=== PATIENT | female | born 1970 | race Caucasian/White ===

== ENCOUNTER → 2021-09-26 13:13 | Outpatient (BNVA) | payer MEDICAID, SELFPAY | PROVIDERS: PCP Psychiatry & Neurology Neurology; Visit Provider Psychiatry & Neurology Neurology ==

== ENCOUNTER → 2021-09-27 15:02 | Outpatient (BNVA) | payer MEDICAID, SELFPAY | PROVIDERS: PCP Psychiatry & Neurology Neurology; Visit Provider Psychiatry & Neurology Neurology | DX: G43.109 Migraine with aura, not intractable, without status migrainosus (principal); E78.5 Hyperlipidemia, unspecified; D72.0 Genetic anomalies of leukocytes; Z88.6 Allergy status to analgesic agent; Z88.1 Allergy status to other antibiotic agents; Z88.2 Allergy status to sulfonamides | CPT/HCPCS: 64615; 99211; J0585 ==

== ENCOUNTER → 2022-01-02 08:25 | Outpatient (BNVA) | payer MEDICAID, SELFPAY | PROVIDERS: PCP Psychiatry & Neurology Neurology; Visit Provider Psychiatry & Neurology Neurology | DX: G43.109 Migraine with aura, not intractable, without status migrainosus (principal) | CPT/HCPCS: 64615; 99211; J0585 ==

== ENCOUNTER → 2022-04-12 10:28 | Outpatient (BNVA) | payer MEDICAID, SELFPAY | PROVIDERS: PCP Psychiatry & Neurology Neurology; Visit Provider Psychiatry & Neurology Neurology | DX: G43.109 Migraine with aura, not intractable, without status migrainosus (principal) | CPT/HCPCS: 64615; 99211; J0585 ==

== ENCOUNTER → 2022-07-17 10:57 | Outpatient (BNVA) | payer MEDICAID, SELFPAY | PROVIDERS: PCP Family Medicine; Visit Provider Psychiatry & Neurology Neurology | DX: G43.109 Migraine with aura, not intractable, without status migrainosus (principal); G43.119 Migraine with aura, intractable, without status migrainosus; G47.10 Hypersomnia, unspecified; R06.83 Snoring | CPT/HCPCS: 64615; 99211; J0585 ==

== ENCOUNTER → 2022-10-22 12:56 | Outpatient (BNVA) | payer MEDICAID, SELFPAY | PROVIDERS: PCP Family Medicine; Visit Provider Psychiatry & Neurology Neurology | DX: G43.109 Migraine with aura, not intractable, without status migrainosus (principal); G43.119 Migraine with aura, intractable, without status migrainosus | CPT/HCPCS: 64615; 99211; J0585 ==

== ENCOUNTER → 2023-01-22 08:22 | Outpatient (BNVA) | payer MEDICAID, SELFPAY | PROVIDERS: PCP Family Medicine; Visit Provider Psychiatry & Neurology Neurology | DX: G43.709 Chronic migraine without aura, not intractable, without status migrainosus (principal); G43.119 Migraine with aura, intractable, without status migrainosus | CPT/HCPCS: 64615; 99211; J0585 ==

== ENCOUNTER 2023-05-02 07:33 | Outpatient (AMB) | payer OTHER, SELFPAY ==
[2023-05-02 07:44] VITALS: BP 122/92; PULSE 80; O2SAT 97
--- NOTE | 2023-05-02 07:44 | A.OFFVIS_ITS ---
Intake Vital Signs 05/02/23 07:44 Weight 183 lb BP 122/92 H Blood Pressure Location Rt brachial Position Sitting Pulse 80 Pulse Source Pulse Oximeter Pulse Oximetry (%) 97 Oxygen Delivery Method Room Air Intake Visit Reasons: Botox (pharm)-CONFIRMED Intake Note: Botox Injection Convict Guard Required: No Allergies Sulfa (Sulfonamide Antibiotics) Allergy (Mild, Verified 05/02/23 07:45) unknown topiramate [From Topamax] Allergy (Mild, Verified 05/02/23 07:45) unknown vancomycin Allergy (Mild, Verified 05/02/23 07:45) unknown Medication List - Last Reconciled 05/02/23 by Jolene Acosta MD cyclobenzaprine 10 mg PO TID PRN diazepam 10 mg PO ONCE PRN gabapentin 1,500 mg PO BEDTIME ivermectin 1% appl topical mupirocin 2% topical TID PRN onabotulinumtoxinA (Botox) 200 units subcut ONCE 12 weeks ondansetron 8 mg PO Q8H PRN podofilox 0.5% mL topical rizatriptan 0 mg PO tramadol 100 mg PO Q6H PRN HPI HPI Comments History of Present Illness Details ? 52y/o female comes for treatment of migraines with botox.she reports increasing sleep issues with snoring, hypersomnia, frequent arousals. ??? Most frequent reported adverse reactions following injection of botox for chronic migraine include neck pain (9%), headache(5%), eyelid ptosis(4%), migraine(4%), muscular weakness(4%), musculuskeletal stiffness(4%), bronchitis(3%), injection site pain (3%), musculoskeletal pain(3%), myalgia(3%), facial paresis(2%), HTN(2%) and muscle spasms(2%) were discussed in detail. ??? Botulinum toxin typeA 200units Lot no [id number] expiration Aug 2025 was diluted with 4 cc of normal saline . ??? Muscles injected- ??? Frontalis 4 sites ??? Procerus 1 site ??? Regional Owner Operator Truck Driver- 2 sites ??? Temporalis- 8 sites ??? Occipitalis- 6 sites ??? Cervical paraspinals- 4 sites ??? Trapezius- 6 sites- 10 units each ??? 5 units each in 31 site ??? Total use- 185units ??? Discarded-15units [facility] Medical History Chronic migraine without aura Hypersomnia Snoring DVT (deep venous thrombosis) May-Thurner syndrome Celiac disease Hyperlipidemia GERD (gastroesophageal reflux disease) Chronic migraine with aura Surgical History History of cholecystectomy Family History Mother Cancer Heart disease Social History Alcohol intake: never Patient Tobacco Use Status: Never used Tobacco Substance Use Type: Marijuana Physical Exam Vital Signs: Last Vital Signs Pulse 80 05/02/23 07:44 BP 122/92 H 05/02/23 07:44 Pulse Ox 97 05/02/23 07:44 Oxygen Delivery Method Room Air 05/02/23 07:44 Const Orientation/consciousness: patient oriented x3 Neuro General: patient oriented x3, gait normal, tone normal, moves all extremities, no focal motor deficits and CN's II-XI intact bilaterally Office Procedures Botulinum toxin Injection 63823 - Migraine Procedure code (CPT) selection complete Office Meds onabotulinumtoxinA 200 unit solution for injection Performing Provider: Jolene Acosta MD Performing Location: [facility] [place] [facility] Administered by: Jolene Acosta MD on 05/02/23 08:12 Dose Route Admin Location Dispensed Lot Number Expiration Date [facility] Air Duct Mechanic 185 unit subcut 200 units [id number] 08/29/25 5530-3814-23 ALLERGAN/BOTOX Comments: see HPI Assessment & Plan Assessment & Plan (1) Migraine with aura, intractable, without status migrainosus: Code(s): G43.119 - Migraine with aura, intractable, without status migrainosus (2) Chronic migraine without aura: Code(s): G43.709 - Chronic migraine without aura, not intractable, without status migrainosus Plan Patient tolerated the procedure well. She will call with any side effects. Orders: Orders AMB Botulinum toxin Injection - Patient Supplied Today G43.709 - Chronic migraine without aura, not intractable, without status migrainosus Coding Level of Care Code Est Pt Level 1 (50957) Diagnoses Migraine with aura, intractable, without status migrainosus G43.119 Chronic migraine without aura G43.709 CPT Codes Botox Injection - Botox 3: 49259 - Migraine ([id number])
== END 2023-05-02 08:07 | disposition home or self-care (01) ==
PROVIDERS: PCP Family Medicine; Visit Provider Psychiatry & Neurology Neurology
DX: G43.119 Migraine with aura, intractable, without status migrainosus (principal); G43.709 Chronic migraine without aura, not intractable, without status migrainosus
CPT/HCPCS: 64615

== ENCOUNTER → 2023-05-02 07:33 | Outpatient (BNVA) | payer MEDICAID, SELFPAY | PROVIDERS: PCP Family Medicine; Visit Provider Psychiatry & Neurology Neurology | DX: G43.709 Chronic migraine without aura, not intractable, without status migrainosus (principal); G43.119 Migraine with aura, intractable, without status migrainosus | CPT/HCPCS: 64615; 99211; J0585 ==

== ENCOUNTER 2023-08-06 09:12 | Outpatient (AMB) | payer OTHER, SELFPAY ==
--- NOTE | 2023-08-06 09:15 | A.OFFVIS_ITS ---
Intake Vital Signs 08/06/23 09:17 Height 5 ft 3 in BP 138/104 H Blood Pressure Location Rt brachial Position Sitting Intake Visit Reasons: BOTOX - LVM Intake Note: Patient presents for botox . Allergies Sulfa (Sulfonamide Antibiotics) Allergy (Mild, Verified 08/06/23 09:16) unknown topiramate [From Topamax] Allergy (Mild, Verified 08/06/23 09:16) unknown vancomycin Allergy (Mild, Verified 08/06/23 09:16) unknown Medication List - Last Reconciled 08/06/23 by Jolene Acosta MD cyclobenzaprine 10 mg PO TID PRN diazepam 10 mg PO ONCE PRN gabapentin 1,500 mg PO BEDTIME ivermectin 1% appl topical mupirocin 2% topical TID PRN onabotulinumtoxinA (Botox) 200 units subcut ONCE 12 weeks ondansetron 8 mg PO Q8H PRN podofilox 0.5% mL topical rizatriptan 0 mg PO tramadol 100 mg PO Q6H PRN HPI HPI Comments History of Present Illness Details ? 53y/o female comes for treatment of migraines with botox.she reports increasing sleep issues with snoring, hypersomnia, frequent arousals. How many migraine days prior to botox 25-30 How long do the migraines last 1-2 days Intensity of migraine 03/07 ER visits related to migraine -2 Effectiveness of botox from last two treatment(s) How many migraine days since receiving treatment: 2-3 Change? in intensity of migraine? decreased Change in frequency of migraine?decreased Change in use of acute medication for migraine?decreased Change in quality of life?improved ER visits related to migraine?none Have at least three months elapsed since last treatment (Last botox date - frequency of injections) 05/02/23 ??? Most frequent reported adverse reactions following injection of botox for chronic migraine include neck pain (9%), headache(5%), eyelid ptosis(4%), migraine(4%), muscular weakness(4%), musculuskeletal stiffness(4%), bronchitis(3%), injection site pain (3%), musculoskeletal pain(3%), myalgia(3%), facial paresis(2%), HTN(2%) and muscle spasms(2%) were discussed in detail. ??? Botulinum toxin typeA 200units Lot no [id number] expiration November 2025 was diluted with 4 cc of normal saline . ??? Muscles injected- ??? Frontalis 4 sites ??? Procerus 1 site ??? Stamp Pad Finisher- 2 sites ??? Temporalis- 8 sites ??? Occipitalis- 6 sites ??? Cervical paraspinals- 4 sites ??? Trapezius- 6 sites- 10 units each ??? 5 units each in 31 site ??? Total use- 185units ??? Discarded-15units [facility] Medical History Chronic migraine without aura Hypersomnia Snoring DVT (deep venous thrombosis) May-Thurner syndrome Celiac disease Hyperlipidemia GERD (gastroesophageal reflux disease) Chronic migraine with aura Surgical History History of cholecystectomy Family History Mother Cancer Heart disease Social History Alcohol intake: never Patient Tobacco Use Status: Never used Tobacco Substance Use Type: Marijuana Physical Exam Vital Signs: Last Vital Signs BP 138/104 H 08/06/23 09:17 Const Orientation/consciousness: patient oriented x3 Neuro General: patient oriented x3, gait normal, tone normal, moves all extremities, no focal motor deficits and CN's II-XI intact bilaterally Office Procedures Botulinum toxin Injection 46299 - Migraine Procedure code (CPT) selection complete Office Meds onabotulinumtoxinA 200 unit solution for injection Performing Provider: Jolene Acosta MD Performing Location: [facility] [place] [facility] Administered by: Jolene Acosta MD on 08/06/23 09:49 Dose Route Admin Location Dispensed Lot Number Expiration Date [facility] Liturgical Music Director 185 unit IM 200 units [id number] 11/26/25 6653-3493-04 ALLERGAN/BOTOX Comments: see HPI Assessment & Plan Assessment & Plan (1) Migraine with aura, intractable, without status migrainosus: Code(s): G43.119 - Migraine with aura, intractable, without status migrainosus (2) Chronic migraine without aura: Code(s): G43.709 - Chronic migraine without aura, not intractable, without status migr ainosus Plan Patient tolerated the procedure well. She will call with any side effects. Orders: Orders AMB Botulinum toxin Injection Today G43.709 - Chronic migraine without aura, not intractable, without status migrainosus Coding Level of Care Code Est Pt Level 1 (62343) Diagnoses Migraine with aura, intractable, without status migrainosus G43.119 Chronic migraine without aura G43.709 CPT Codes Botox Injection - Botox 3: 00392 - Migraine ([id number])
[2023-08-06 09:17] VITALS: BP 138/104
== END 2023-08-06 09:40 | disposition home or self-care (01) ==
PROVIDERS: PCP Family Medicine; Visit Provider Psychiatry & Neurology Neurology
DX: G43.119 Migraine with aura, intractable, without status migrainosus (principal); G43.709 Chronic migraine without aura, not intractable, without status migrainosus
CPT/HCPCS: 64615

== ENCOUNTER → 2023-08-06 09:12 | Outpatient (BNVA) | payer OTHER, SELFPAY | PROVIDERS: PCP Family Medicine; Visit Provider Psychiatry & Neurology Neurology | DX: G43.709 Chronic migraine without aura, not intractable, without status migrainosus (principal); G43.119 Migraine with aura, intractable, without status migrainosus | CPT/HCPCS: 64615; 99211; J0585 ==

== ENCOUNTER 2023-11-05 07:33 | Outpatient (AMB) | payer MEDICAID, SELFPAY ==
[2023-11-05 07:37] VITALS: BP 126/74; PULSE 76; RESP 16; O2SAT 98; BMI 32.8
--- NOTE | 2023-11-05 07:37 | MHC.OFFVIS ---
Intake Vital Signs 11/05/23 07:37 Height 5 ft 3 in Weight 185 lb BMI 32.8 BP 126/74 Blood Pressure Location Rt brachial Position Sitting Respiration 16 Pulse 76 Pulse Source Pulse Oximeter Pulse Oximetry (%) 98 Oxygen Delivery Method Room Air Intake Visit Reasons: Botox appt-CONF Intake Note: Pt presents tot he office for Botox injections. Church History Teacher Required: No Allergies Sulfa (Sulfonamide Antibiotics) Allergy (Mild, Verified 11/05/23 07:37) unknown topiramate [From Topamax] Allergy (Mild, Verified 11/05/23 07:37) unknown vancomycin Allergy (Mild, Verified 11/05/23 07:37) unknown Medication List - Last Reconciled 11/05/23 by Jolene Acosta MD cyclobenzaprine 10 mg PO TID PRN diazepam 10 mg PO ONCE PRN gabapentin 1,500 mg PO BEDTIME ivermectin 1% appl topical mupirocin 2% topical TID PRN onabotulinumtoxinA (Botox) 200 units subcut ONCE 12 weeks ondansetron 8 mg PO Q8H PRN podofilox 0.5% mL topical rizatriptan 0 mg PO rizatriptan take 1 tab at onset of headache; if no relief may repeat 1 tab after at least 2 hrs; max = 3 tabs/24 hr PO tramadol 100 mg PO Q6H PRN HPI HPI Comments History of Present Illness Details ? 53y/o female comes for treatment of migraines with botox.she reports increasing sleep issues with snoring, hypersomnia, frequent arousals. How many migraine days prior to botox 25-30 How long do the migraines last 1-2 days Intensity of migraine 03/07 ER visits related to migraine -2 Effectiveness of botox from last two treatment(s) How many migraine days since receiving treatment: 2-3 Change? in intensity of migraine? decreased Change in frequency of migraine?decreased Change in use of acute medication for migraine?decreased Change in quality of life?improved ER visits related to migraine?none Have at least three months elapsed since last treatment (Last botox date - frequency of injections) 05/02/23 ??? Most frequent reported adverse reactions following injection of botox for chronic migraine include neck pain (9%), headache(5%), eyelid ptosis(4%), migraine(4%), muscular weakness(4%), musculuskeletal stiffness(4%), bronchitis(3%), injection site pain (3%), musculoskeletal pain(3%), myalgia(3%), facial paresis(2%), HTN(2%) and muscle spasms(2%) were discussed in detail. ??? Botulinum toxin typeA 200units Lot no [id number] expiration December 2025 was diluted with 4 cc of normal saline . ??? Muscles injected- ??? Frontalis 4 sites ??? Procerus 1 site ??? Professional Nurse- 2 sites ??? Temporalis- 8 sites ??? Occipitalis- 6 sites ??? Cervical paraspinals- 4 sites ??? Trapezius- 6 sites- 10 units each ??? 5 units each in 31 site ??? Total use- 185units ??? Discarded-15units [facility] Medical History Chronic migraine without aura Hypersomnia Snoring DVT (deep venous thrombosis) May-Thurner syndrome Celiac disease Hyperlipidemia GERD (gastroesophageal reflux disease) Chronic migraine with aura Surgical History History of cholecystectomy Family History Mother Cancer Heart disease Social History Alcohol intake: never Patient Tobacco Use Status: Never used Tobacco Substance Use Type: Marijuana Physical Exam Vital Signs: Last Vital Signs Pulse 76 11/05/23 07:37 Resp 16 11/05/23 07:37 BP 126/74 11/05/23 07:37 Pulse Ox 98 11/05/23 07:37 Oxygen Delivery Method Room Air 11/05/23 07:37 BMI result Body Mass Index 32.8 Const Orientation/consciousness: patient oriented x3 Neuro General: patient oriented x3, gait normal, tone normal, moves all extremities, no focal motor deficits and CN's II-XI intact bilaterally Office Procedures Botulinum toxin Injection 55989 - Migraine Procedure code (CPT) selection complete Office Meds onabotulinumtoxinA 200 unit solution for injection Performing Provider: Jolene Acosta MD Performing Location: [facility] Administered by: Jolene Acosta MD on 11/05/23 08:40 Dose Route Admin Location Dispensed Lot Number Expiration Date [facility] Otorhinolaryngologist 185 unit IM 200 units [id number] 12/27/25 0549-9789-38 ALLERGAN/BOTOX Comments: see HPI Assessment & Plan Assessment & Plan (1) Migraine with aura, intractable, without status migrainosus: Code(s): G43.119 - Migraine with aura, intractable, without status migrainosus (2) Chronic migraine without aura: Code(s): G43.709 - Chronic migraine without aura, not intractable, without status migrainosus Plan Patient tolerated the procedure well. She will call with any side effects. Orders: Orders AMB Botulinum toxin Injection Today G43.709 - Chronic migraine without aura, not intractable, without status migrainosus Medications: New rizatriptan take 1 tab at onset of headache; if no relief may repeat 1 tab after at least 2 hrs; max = 3 tabs/24 hr PO 14 tabs 6RF rizatriptan take 1 tab at onset of headache; if no relief may repeat 1 tab after at least 2 hrs; max = 3 tabs/24 hr PO 14 tabs 6RF onabotulinumtoxinA 200 units IM ONCE 1 ea 0RF migraine G43.709 - Chronic migraine without aura, not intractable, without status migrainosus Coding Level of Care Code Est Pt Level 1 (63369) Diagnoses Migraine with aura, intractable, without status migrainosus G43.119 Chronic migraine without aura G43.709 CPT Codes Botox Injection - Botox 3: 44994 - Migraine ([id number])
== END 2023-11-05 08:32 | disposition home or self-care (01) ==
PROVIDERS: PCP Family Medicine; Referring Provider Family Medicine; Visit Provider Psychiatry & Neurology Neurology
DX: G43.119 Migraine with aura, intractable, without status migrainosus (principal)
CPT/HCPCS: 64615

== ENCOUNTER → 2023-11-05 07:33 | Outpatient (BNVA) | payer MEDICAID, SELFPAY | PROVIDERS: PCP Family Medicine; Visit Provider Psychiatry & Neurology Neurology | DX: G43.119 Migraine with aura, intractable, without status migrainosus (principal); G43.709 Chronic migraine without aura, not intractable, without status migrainosus | CPT/HCPCS: 64615; 99211; J0585 ==

== ENCOUNTER 2024-02-27 12:38 | Outpatient (AMB) | payer OTHER, SELFPAY ==
--- NOTE | 2024-02-27 12:40 | MHC.OFFVIS ---
Vital Signs 02/27/24 12:41 Height 5 ft 3 in Weight 185 lb BMI 32.8 BP 106/62 Blood Pressure Location Rt brachial Position Sitting Respiration 16 Pulse 93 Pulse Source Pulse Oximeter Pulse Oximetry (%) 97 Oxygen Delivery Method Room Air Intake Visit Reasons: BOTOX - LVM w/add Intake Note: Pt presents to the office for Botox injections for chronic migraines. Supervisor Blood Donor Recruiters Required: No Allergies Sulfa (Sulfonamide Antibiotics) Allergy (Mild, Verified 02/27/24 12:40) unknown topiramate [From Topamax] Allergy (Mild, Verified 02/27/24 12:40) unknown vancomycin Allergy (Mild, Verified 02/27/24 12:40) unknown Medication List - Last Reconciled 02/27/24 by Jolene Acosta MD cyclobenzaprine 10 mg PO TID PRN diazepam 10 mg PO ONCE PRN gabapentin 1,500 mg PO BEDTIME ivermectin 1% appl topical mupirocin 2% topical TID PRN onabotulinumtoxinA (Botox) 200 units subcut ONCE 12 weeks ondansetron 8 mg PO Q8H PRN podofilox 0.5% mL topical rizatriptan 0 mg PO rizatriptan take 1 tab at onset of headache; if no relief may repeat 1 tab after at least 2 hrs; max = 3 tabs/24 hr PO tramadol 100 mg PO Q6H PRN HPI Comments Details: ? 53y/o female comes for treatment of migraines with botox.she reports increasing sleep issues with snoring, hypersomnia, frequent arousals. How many migraine days prior to botox 25-30 How long do the migraines last 1-2 days Intensity of migraine 03/07 ER visits related to migraine -2 Effectiveness of botox from last two treatment(s) How many migraine days since receiving treatment: 2-3 Change? in intensity of migraine? decreased Change in frequency of migraine?decreased Change in use of acute medication for migraine?decreased Change in quality of life?improved ER visits related to migraine?none Have at least three months elapsed since last treatment (Last botox date - frequency of injections) 11/19 ??? Most frequent reported adverse reactions following injection of botox for chronic migraine include neck pain (9%), headache(5%), eyelid ptosis(4%), migraine(4%), muscular weakness(4%), musculuskeletal stiffness(4%), bronchitis(3%), injection site pain (3%), musculoskeletal pain(3%), myalgia(3%), facial paresis(2%), HTN(2%) and muscle spasms(2%) were discussed in detail. ??? Botulinum toxin typeA 200units Lot no [id number] expiration Jun 2026 was diluted with 4 cc of normal saline . ??? Muscles injected- ??? Frontalis 4 sites ??? Procerus 1 site ??? Rn Concurrent Review- 2 sites ??? Temporalis- 8 sites ??? Occipitalis- 6 sites ??? Cervical paraspinals- 4 sites ??? Trapezius- 6 sites- 10 units each ??? 5 units each in 31 site ??? Total use- 185units ??? Discarded-15units [facility] Medical History (Updated 02/27/24 @ 13:05 by Jolene Acosta MD) Chronic migraine without aura, intractable, without status migrainosus Chronic migraine without aura Hypersomnia Snoring DVT (deep venous thrombosis) May-Thurner syndrome Celiac disease Hyperlipidemia GERD (gastroesophageal reflux disease) Chronic migraine with aura Surgical History History of cholecystectomy Family History Mother Cancer Heart disease Social History Alcohol intake: never Patient Tobacco Use Status: Never used Tobacco Substance Use Type: Marijuana Physical Exam Vital Signs: Last Vital Signs Pulse 93 02/27/24 12:41 Resp 16 02/27/24 12:41 BP 106/62 02/27/24 12:41 Pulse Ox 97 02/27/24 12:41 Oxygen Delivery Method Room Air 02/27/24 12:41 BMI result Body Mass Index 32.8 Const Orientation/consciousness: patient oriented x3 Neuro General: patient oriented x3, gait normal, tone normal, moves all extremities, no focal motor deficits and CN's II-XI intact bilaterally Assessment & Plan Assessment & Plan (1) Migraine with aura, intractable, without status migrainosus: Code(s): G43.119 - Migraine with aura, intractable, without status migrainosus Category: Medical (2) Chronic migraine without aura: Code(s): G43.709 - Chronic migraine without aura, not intractable, without status migrainosus Category: Medical (3) Chronic migraine without aura, intractable, without status migrainosus: Code(s): G43.719 - Chronic migraine without aura, intractable, without status migrainosus Category: Medical Plan Patient tolerated the procedure well. She will call with any side effects. Orders: Orders AMB Botulinum toxin Injection Today G43.719 - Chronic migraine without aura, intractable, without status migrainosus Medications: New onabotulinumtoxinA 200 units subcut ONCE 1 ea 0RF migraine G43.719 - Chronic migraine without aura, intractable, without status migrainosus Coding Level of Care Code Est Pt Level 1 (22777) Diagnoses Migraine with aura, intractable, without status migrainosus G43.119 Chronic migraine without aura G43.709 Chronic migraine without aura, intractable, without status migrainosus G43.719
[2024-02-27 12:41] VITALS: BP 106/62; PULSE 93; RESP 16; O2SAT 97; BMI 32.8
== END 2024-02-27 13:08 | disposition home or self-care (01) ==
PROVIDERS: PCP Family Medicine; Visit Provider Psychiatry & Neurology Neurology
DX: G43.E19 Chronic migraine with aura, intractable, without status migrainosus (principal)
CPT/HCPCS: 64615

== ENCOUNTER → 2024-02-27 12:38 | Outpatient (BNVA) | payer OTHER, SELFPAY | PROVIDERS: PCP Family Medicine; Visit Provider Psychiatry & Neurology Neurology | DX: G43.E19 Chronic migraine with aura, intractable, without status migrainosus (principal) | CPT/HCPCS: 64615; 99211; J0585 ==

== ENCOUNTER 2024-06-04 09:34 | Outpatient (AMB) | payer OTHER, SELFPAY ==
--- NOTE | 2024-06-04 07:33 | A.OFFVIS_ITS ---
Vital Signs 06/04/24 09:36 Height 5 ft 3 in Intake Visit Reasons: BOTOX Intake Note: Patient presents for botox Allergies Sulfa (Sulfonamide Antibiotics) Allergy (Mild, Verified 06/04/24 09:38) unknown topiramate [From Topamax] Allergy (Mild, Verified 06/04/24 09:38) unknown vancomycin Allergy (Mild, Verified 06/04/24 09:38) unknown Medication List - Last Reconciled 06/04/24 by Jolene Acosta MD cyclobenzaprine 10 mg PO TID PRN diazepam 10 mg PO ONCE PRN gabapentin 1,500 mg PO BEDTIME ivermectin 1% appl topical mupirocin 2% topical TID PRN onabotulinumtoxinA (Botox) 200 units subcut ONCE 12 weeks ondansetron 8 mg PO Q8H PRN podofilox 0.5% mL topical rizatriptan 0 mg PO rizatriptan take 1 tab at onset of headache; if no relief may repeat 1 tab after at least 2 hrs; max = 3 tabs/24 hr PO tramadol 100 mg PO Q6H PRN HPI Comments Details: ? 53y/o female comes for treatment of migraines with botox.she reports increasing sleep issues with snoring, hypersomnia, frequent arousals. How many migraine days prior to botox 25-30 How long do the migraines last 1-2 days Intensity of migraine /10 ER visits related to migraine -2 Effectiveness of botox from last two treatment(s) How many migraine days since receiving treatment: 2-3 Change? in intensity of migraine? decreased Change in frequency of migraine?decreased Change in use of acute medication for migraine?decreased Change in quality of life?improved ER visits related to migraine?none Have at least three months elapsed since last treatment (Last botox date - frequency of injections) 02/18 ??? Most frequent reported adverse reactions following injection of botox for chronic migraine include neck pain (9%), headache(5%), eyelid ptosis(4%), migraine(4%), muscular weakness(4%), musculuskeletal stiffness(4%), bronchitis(3%), injection site pain (3%), musculoskeletal pain(3%), myalgia(3%), facial paresis(2%), HTN(2%) and muscle spasms(2%) were discussed in detail. ??? Botulinum toxin typeA 200units Lot no [id number] expiration Aug 2026 was diluted with 4 cc of normal saline . ??? Muscles injected- ??? Frontalis 4 sites ??? Procerus 1 site ??? Assistant Professor Of Music- 2 sites ??? Temporalis- 8 sites ??? Occipitalis- 6 sites ??? Cervical paraspinals- 4 sites ??? Trapezius- 6 sites- 10 units each ??? 5 units each in 31 site ??? Total use- 185units ??? Discarded-15units [facility] Medical History Chronic migraine without aura, intractable, without status migrainosus Chronic migraine without aura Hypersomnia Snoring DVT (deep venous thrombosis) May-Thurner syndrome Celiac disease Hyperlipidemia GERD (gastroesophageal reflux disease) Chronic migraine with aura Surgical History History of cholecystectomy Family History Mother Cancer Heart disease Social History Alcohol intake: never Patient Tobacco Use Status: Never used Tobacco Substance Use Type: Marijuana Physical Exam Const Orientation/consciousness: patient oriented x3 Neuro General: patient oriented x3, gait normal, tone normal, moves all extremities, no focal motor deficits and CN's II-XI intact bilaterally Office Procedures Botulinum toxin Injection 09673 - Migraine Procedure code (CPT) selection complete Office Meds onabotulinumtoxinA 200 unit solution for injection Performing Provider: Jolene Acosta MD [place] [facility] [place] [facility] Administered by: Jolene Acosta MD on 06/04/24 10:58 Dose Route Admin Location Dispensed Lot Number Expiration Date [facility] Wardrobe Mistress 185 unit subcut 200 units [id number] 08/29/26 7921-1959-02 ALLERGAN/BOTOX Comments: see hpi Assessment & Plan Assessment & Plan (1) Migraine with aura, intractable, without status migrainosus: Code(s): G43.119 - Migraine with aura, intractable, without status migrainosus Category: Medical (2) Chronic migraine without aura: Code(s): G43.709 - Chronic migraine without aura, not intractable, without status migrainosus Category: Medical (3) Chronic migraine without aura, intractable, without status migrainosus: Code(s): G43.719 - Chronic migraine without aura, intractable, without status migrainosus Category: Medical Plan Patient tolerated the procedure well. She will call with any side effects. Orders: Orders AMB Botulinum toxin Injection Today G43.719 - Chronic migraine without aura, intractable, without status migrainosus Medications: New onabotulinumtoxinA 200 units subcut ONCE 1 ea 0RF migraine G43.719 - Chronic migraine without aura, intractable, without status migrainosus Coding Level of Care Code Est Pt Level 1 (32608) Diagnoses Migraine with aura, intractable, without status migrainosus G43.119 Chronic migraine without aura G43.709 Chronic migraine without aura, intractable, without status migrainosus G43.719 CPT Codes Botox Injection - Botox 3: 94908 - Migraine ([id number])
== END 2024-06-04 10:01 | disposition home or self-care (01) ==
LOC: HO.HSMS 09:35
PROVIDERS: PCP Family Medicine; Visit Provider Psychiatry & Neurology Neurology
DX: G43.719 Chronic migraine without aura, intractable, without status migrainosus (principal)
CPT/HCPCS: 64615

== ENCOUNTER → 2024-06-04 09:34 | Outpatient (BNVA) | payer OTHER, SELFPAY | PROVIDERS: PCP Family Medicine; Visit Provider Psychiatry & Neurology Neurology | DX: G43.E19 Chronic migraine with aura, intractable, without status migrainosus (principal) | CPT/HCPCS: 64615; 99211; J0585 ==

== ENCOUNTER 2024-09-29 14:41 | Outpatient (AMB) | payer OTHER, SELFPAY ==
--- NOTE | 2024-09-29 14:48 | A.OFFVIS_ITS ---
Vital Signs 09/29/24 14:49 Height 5 ft 3 in BP 112/82 Blood Pressure Location Rt brachial Position Sitting Pulse 82 Pulse Source Pulse Oximeter Pulse Oximetry (%) 100 Oxygen Delivery Method Room Air Intake Visit Reasons: Botox Intake Note: Patient presents for botox injection. practice supplied Allergies Sulfa (Sulfonamide Antibiotics) Allergy (Mild, Verified 09/29/24 14:49) unknown topiramate [From Topamax] Allergy (Mild, Verified 09/29/24 14:49) unknown vancomycin Allergy (Mild, Verified 09/29/24 14:49) unknown Medication List - Last Reconciled 09/29/24 by Jolene Acosta MD cyclobenzaprine 10 mg PO TID PRN diazepam 10 mg PO ONCE PRN gabapentin 1,500 mg PO BEDTIME ivermectin 1% appl topical mupirocin 2% topical TID PRN onabotulinumtoxinA (Botox) 200 units subcut ONCE 12 weeks ondansetron 8 mg PO Q8H PRN podofilox 0.5% mL topical rizatriptan 0 mg PO rizatriptan take 1 tab at onset of headache; if no relief may repeat 1 tab after at least 2 hrs; max = 3 tabs/24 hr PO tramadol 100 mg PO Q6H PRN HPI Comments Details: ? 54y/o female comes for treatment of migraines with botox.she reports increasing sleep issues with snoring, hypersomnia, frequent arousals. How many migraine days prior to botox 25-30 How long do the migraines last 1-2 days Intensity of migraine 8/10 ER visits related to migraine -2 Effectiveness of botox from last two treatment(s) How many migraine days since receiving treatment: 2-3 Change? in intensity of migraine? decreased Change in frequency of migraine?decreased Change in use of acute medication for migraine?decreased Change in quality of life?improved ER visits related to migraine?none Have at least three months elapsed since last treatment (Last botox date - frequency of injections) 3 mths ago ??? Most frequent reported adverse reactions following injection of botox for chronic migraine include neck pain (9%), headache(5%), eyelid ptosis(4%), migraine(4%), muscular weakness(4%), musculuskeletal stiffness(4%), bronchitis(3%), injection site pain (3%), musculoskeletal pain(3%), myalgia(3%), facial paresis(2%), HTN(2%) and muscle spasms(2%) were discussed in detail. ??? Botulinum toxin typeA 200units Lot no [id number] expiration October 2026 was diluted with 4 cc of normal saline . ??? Muscles injected- ??? Frontalis 4 sites ??? Procerus 1 site ??? Die Cast Supervisor- 2 sites ??? Temporalis- 8 sites ??? Occipitalis- 6 sites ??? Cervical paraspinals- 4 sites ??? Trapezius- 6 sites- 10 units each ??? 5 units each in 31 site ??? Total use- 185units ??? Discarded-15units [facility] Medical History Chronic migraine without aura, intractable, without status migrainosus Chronic migraine without aura Hypersomnia Snoring DVT (deep venous thrombosis) May-Thurner syndrome Celiac disease Hyperlipidemia GERD (gastroesophageal reflux disease) Chronic migraine with aura Surgical History History of cholecystectomy Family History Mother Cancer Heart disease Social History Alcohol intake: never Patient Tobacco Use Status: Never used Tobacco Substance Use Type: Marijuana Physical Exam Vital Signs: Last Vital Signs Pulse 82 09/29/24 14:49 BP 112/82 09/29/24 14:49 Pulse Ox 100 09/29/24 14:49 Oxygen Delivery Method Room Air 09/29/24 14:49 Const Orientation/consciousness: patient oriented x3 Neuro General: patient oriented x3, gait normal, tone normal, moves all extremities, no focal motor deficits and CN's II-XI intact bilaterally Office Procedures Botulinum toxin Injection 43900 - Migraine Procedure code (CPT) selection complete Office Meds onabotulinumtoxinA 200 unit solution for injection Performing Provider: Jolene Acosta MD Performing Location: [facility] [place] [facility] Administered by: Jolene Acosta MD on 09/29/24 15:07 Dose Route Admin Location Dispensed Lot Number Expiration Date [place] [employer] Welder 185 unit subcut 200 units [id number] ALLERGAN/BOTOX Comments: see hpi Assessment & Plan Assessment & Plan (1) Migraine with aura, intractable, without status migrainosus: Code(s): G43.119 - Migraine with aura, intractable, without status migrainosus Category: Medical (2) Chronic migraine without aura: Code(s): G43.709 - Chronic migraine without aura, not intractable, without status migrainosus Category: Medical (3) Chronic migraine without aura, intractable, without status migrainosus: Code(s): G43.719 - Chronic migraine without aura, intractable, without status migrainosus Category: Medical Plan Patient tolerated the procedure well. She will call with any side effects. Orders: Orders AMB Botulinum toxin Injection Today G43.719 - Chronic migraine without aura, intractable, without status migrainosus Medications: New onabotulinumtoxinA 200 units subcut ONCE 1 ea 0RF Migraine G43.719 - Chronic migraine without aura, intractable, without status migrainosus Coding Level of Care Code Est Pt Level 1 (14234) Diagnoses Migraine with aura, intractable, without status migrainosus G43.119 Chronic migraine without aura G43.709 Chronic migraine without aura, intractable, without status migrainosus G43.719 CPT Codes Botox Injection - Botox 3: 52319 - Migraine ([id number])
[2024-09-29 14:49] VITALS: BP 112/82; PULSE 82; O2SAT 100
== END 2024-09-29 15:20 | disposition home or self-care (01) ==
PROVIDERS: PCP Family Medicine; Visit Provider Psychiatry & Neurology Neurology
DX: G43.719 Chronic migraine without aura, intractable, without status migrainosus (principal)
CPT/HCPCS: 64615

== ENCOUNTER → 2024-09-29 14:41 | Outpatient (BNVA) | payer OTHER, SELFPAY | PROVIDERS: PCP Family Medicine; Visit Provider Psychiatry & Neurology Neurology | DX: G43.E19 Chronic migraine with aura, intractable, without status migrainosus (principal) | CPT/HCPCS: 64615; 99211; J0585 ==

== ENCOUNTER 2025-01-05 14:58 | Outpatient (AMB) | payer OTHER, SELFPAY ==
--- NOTE | 2025-01-05 15:03 | MHC.OFFVIS ---
Vital Signs 01/05/25 15:03 Height 5 ft 3 in Intake Visit Reasons: Botox Intake Note: Patient presents for botox injection. practice supplied Allergies Sulfa (Sulfonamide Antibiotics) Allergy (Mild, Verified 09/29/24 14:49) unknown topiramate [From Topamax] Allergy (Mild, Verified 09/29/24 14:49) unknown vancomycin Allergy (Mild, Verified 09/29/24 14:49) unknown Medication List - Last Reconciled 01/05/25 by Jolene Acosta MD cyclobenzaprine 10 mg PO TID PRN diazepam 10 mg PO ONCE PRN gabapentin 1,500 mg PO BEDTIME ivermectin 1% appl topical mupirocin 2% topical TID PRN onabotulinumtoxinA (Botox) 200 units subcut ONCE 12 weeks ondansetron 8 mg PO Q8H PRN podofilox 0.5% mL topical rizatriptan 0 mg PO rizatriptan take 1 tab at onset of headache; if no relief may repeat 1 tab after at least 2 hrs; max = 3 tabs/24 hr PO tramadol 100 mg PO Q6H PRN HPI Comments Details: ? 54y/o female comes for treatment of migraines with botox.she reports increasing sleep issues with snoring, hypersomnia, frequent arousals. How many migraine days prior to botox 25-30 How long do the migraines last 1-2 days Intensity of migraine 8/10 ER visits related to migraine -2 Effectiveness of botox from last two treatment(s) How many migraine days since receiving treatment: 2-3 Change? in intensity of migraine? decreased Change in frequency of migraine?decreased Change in use of acute medication for migraine?decreased Change in quality of life?improved ER visits related to migraine?none Have at least three months elapsed since last treatment (Last botox date - frequency of injections) 3 mths ago ??? Most frequent reported adverse reactions following injection of botox for chronic migraine include neck pain (9%), headache(5%), eyelid ptosis(4%), migraine(4%), muscular weakness(4%), musculuskeletal stiffness(4%), bronchitis(3%), injection site pain (3%), musculoskeletal pain(3%), myalgia(3%), facial paresis(2%), HTN(2%) and muscle spasms(2%) were discussed in detail. ??? Botulinum toxin typeA 200units Lot no [id number] expiration April 2027 was diluted with 4 cc of normal saline . ??? Muscles injected- ??? Frontalis 4 sites ??? Procerus 1 site ??? Shuttleless Loom Weaver- 2 sites ??? Temporalis- 8 sites ??? Occipitalis- 6 sites ??? Cervical paraspinals- 4 sites ??? Trapezius- 6 sites- 10 units each ??? 5 units each in 31 site ??? Total use- 185units ??? Discarded-15units [facility] Medical History Chronic migraine without aura, intractable, without status migrainosus Chronic migraine without aura Hypersomnia Snoring DVT (deep venous thrombosis) May-Thurner syndrome Celiac disease Hyperlipidemia GERD (gastroesophageal reflux disease) Chronic migraine with aura Surgical History History of cholecystectomy Family History Mother Cancer Heart disease Social History Alcohol intake: never Patient Tobacco Use Status: Never used Tobacco Substance Use Type: Marijuana Physical Exam Const Orientation/consciousness: patient oriented x3 Neuro General: patient oriented x3, gait normal, tone normal, moves all extremities, no focal motor deficits and CN's II-XI intact bilaterally Office Procedures Botulinum toxin Injection 81232 - Migraine Procedure code (CPT) selection complete Office Meds onabotulinumtoxinA 200 unit solution for injection Performing Provider: Jolene Acosta MD Performing Location: [facility] [place] [facility] Administered by: Jolene Acosta MD on 01/05/25 15:22 Dose Route Admin Location Dispensed Lot Number Expiration Date [facility] Career Services Director 185 unit subcut 200 units [id number] ALLERGAN/BOTOX Comments: see HPI Assessment & Plan Assessment & Plan (1) Migraine with aura, intractable, without status migrainosus: Code(s): G43.119 - Migraine with aura, intractable, without status migrainosus Category: Medical (2) Chronic migraine without aura: Code(s): G43.709 - Chronic migraine without aura, not intractable, without status migrainosus Category: Medical Qualifiers: Status migrainosus presence: without status migrainosus Intractability: not intractable Qualified Code(s): G43.709 - Chronic migraine without aura, not intractable, without status migrainosus (3) Chronic migraine without aura, intractable, without status migrainosus: Code(s): G43.719 - Chronic migraine without aura, intractable, without status migrainosus Category: Medical Plan Patient tolerated the procedure well. She will call with any side effects. Orders: Orders AMB Botulinum toxin Injection Today G43.719 - Chronic migraine without aura, intractable, without status migrainosus Medications: New onabotulinumtoxinA 200 units subcut ONCE 1 ea 0RF migraine G43.719 - Chronic migraine without aura, intractable, without status migrainosus Coding Level of Care Code Est Pt Level 1 (70914) Diagnoses Migraine with aura, intractable, without status migrainosus G43.119 Chronic migraine without aura without status migrainosus, not intractable G43.709 Status migrainosus presence: without status migrainosus Intractability: not intractable Chronic migraine without aura, intractable, without status migrainosus G43.719 CPT Codes Botox Injection - Botox 3: 93819 - Migraine ([id number])
== END 2025-01-05 15:19 | disposition home or self-care (01) ==
LOC: HO.HSMS 14:59
PROVIDERS: PCP Family Medicine; Visit Provider Psychiatry & Neurology Neurology
DX: G43.719 Chronic migraine without aura, intractable, without status migrainosus (principal)
CPT/HCPCS: 64615

== ENCOUNTER → 2025-01-05 14:58 | Outpatient (BNVA) | payer OTHER, SELFPAY | PROVIDERS: PCP Family Medicine; Visit Provider Psychiatry & Neurology Neurology | DX: G43.719 Chronic migraine without aura, intractable, without status migrainosus (principal) | CPT/HCPCS: 64615; 99211; J0585 ==

== ENCOUNTER 2025-04-14 15:02 | Outpatient (AMB) | payer OTHER, SELFPAY ==
--- NOTE | 2025-04-14 15:09 | MHC.OFFVIS ---
Vital Signs 04/14/25 15:10 Height 5 ft 3 in BP 106/80 Blood Pressure Location Rt brachial Position Sitting Pulse 88 Pulse Source Pulse Oximeter Pulse Oximetry (%) 96 Oxygen Delivery Method Room Air Intake Visit Reasons: Botox Intake Note: Botox Coal Cutting Machine Operator Required: No Accompanied by: Self / Same As Patient Allergies Sulfa (Sulfonamide Antibiotics) Allergy (Mild, Verified 04/14/25 15:10) unknown topiramate (From Topamax) Allergy (Mild, Verified 04/14/25 15:10) unknown vancomycin Allergy (Mild, Verified 04/14/25 15:10) unknown Medication List - Last Reconciled 04/14/25 by Jolene Acosta MD cyclobenzaprine 10 mg PO TID PRN diazepam 10 mg PO ONCE PRN gabapentin 1,500 mg PO BEDTIME ivermectin 1% appl topical onabotulinumtoxinA (Botox) 200 units subcut ONCE 12 weeks ondansetron 8 mg PO Q8H PRN rizatriptan take 1 tab at onset of headache; if no relief may repeat 1 tab after at least 2 hrs; max = 3 tabs/24 hr PO tramadol 100 mg PO Q6H PRN HPI Comments Details: ? 54y/o female comes for treatment of migraines with botox.she reports increasing sleep issues with snoring, hypersomnia, frequent arousals. How many migraine days prior to botox 25-30 How long do the migraines last 1-2 days Intensity of migraine 8/10 ER visits related to migraine -2 Effectiveness of botox from last two treatment(s) How many migraine days since receiving treatment: 2-3 Change? in intensity of migraine? decreased Change in frequency of migraine?decreased Change in use of acute medication for migraine?decreased Change in quality of life?improved ER visits related to migraine?none Have at least three months elapsed since last treatment (Last botox date - frequency of injections) 3 mths ago ??? Most frequent reported adverse reactions following injection of botox for chronic migraine include neck pain (9%), headache(5%), eyelid ptosis(4%), migraine(4%), muscular weakness(4%), musculuskeletal stiffness(4%), bronchitis(3%), injection site pain (3%), musculoskeletal pain(3%), myalgia(3%), facial paresis(2%), HTN(2%) and muscle spasms(2%) were discussed in detail. ??? Botulinum toxin typeA 200units Lot no [id number] expiration Aug 2027 was diluted with 4 cc of normal saline . ??? Muscles injected- ??? Frontalis 4 sites ??? Procerus 1 site ??? Wastewater Plant Civil Engineer- 2 sites ??? Temporalis- 8 sites ??? Occipitalis- 6 sites ??? Cervical paraspinals- 4 sites ??? Trapezius- 6 sites- 10 units each ??? 5 units each in 31 site ??? Total use- 185units ??? Discarded-15units [facility] Medical History Chronic migraine without aura, intractable, without status migrainosus Chronic migraine without aura Hypersomnia Snoring DVT (deep venous thrombosis) May-Thurner syndrome Celiac disease Hyperlipidemia GERD (gastroesophageal reflux disease) Chronic migraine with aura Surgical History History of cholecystectomy Family History Mother Cancer Heart disease Social History Alcohol intake: never Patient Tobacco Use Status: Never used Tobacco Substance Use Type: Marijuana Physical Exam Vital Signs: Last Vital Signs Pulse 88 04/14/25 15:10 BP 106/80 04/14/25 15:10 Pulse Ox 96 04/14/25 15:10 Oxygen Delivery Method Room Air 04/14/25 15:10 Const Orientation/consciousness: patient oriented x3 Neuro General: patient oriented x3, gait normal, tone normal, moves all extremities, no focal motor deficits and CN's II-XI intact bilaterally Office Procedures Botulinum toxin Injection 09765 - Migraine Procedure code (CPT) selection complete Office Meds onabotulinumtoxinA 200 unit solution for injection Performing Provider: Jolene Acosta MD Performing Location: [facility] [place] [facility] Administered by: Jolene Acosta MD on 04/14/25 15:33 Dose Route Admin Location Dispensed Lot Number Expiration Date [facility] [address] [employer] Post Repairer 185 unit subcut 200 units [id number] ALLERGAN/BOTOX Total Dispensed Waste 200 units 7.5 % Comments: see hpi Assessment & Plan Assessment & Plan (1) Migraine with aura, intractable, without status migrainosus: Code(s): G43.119 - Migraine with aura, intractable, without status migrainosus Category: Medical (2) Chronic migraine without aura: Code(s): G43.709 - Chronic migraine without aura, not intractable, without status migrainosus Category: Medical Qualifiers: Status migrainosus presence: without status migrainosus Intractability: not intractable Qualified Code(s): G43.709 - Chronic migraine without aura, not intractable, without status migrainosus (3) Chronic migraine without aura, intractable, without status migrainosus: Code(s): G43.719 - Chronic migraine without aura, intractable, without status migrainosus Category: Medical Plan Patient tolerated the procedure well. She will call with any side effects. Orders: Orders AMB Botulinum toxin Injection Today G43.709 - Chronic migraine without aura, not intractable, without status migrainosus Coding Level of Care Code Est Pt Level 1 (11866) Diagnoses Migraine with aura, intractable, without status migrainosus G43.119 Chronic migraine without aura without status migrainosus, not intractable G43.709 Status migrainosus presence: without status migrainosus Intractability: not intractable Chronic migraine without aura, intractable, without status migrainosus G43.719 CPT Codes Botox Injection - Botox 3: 91750 - Migraine ([id number])
[2025-04-14 15:10] VITALS: BP 106/80; PULSE 88; O2SAT 96
--- OUTSIDE RECORDS SUMMARY | 2025-04-14 18:35 | XMS_ITS | Clinical Summary ---
Author Organization [facility] Address [address] [place] [address] Phone Care Team Providers Care Mine Car Dispatcher Name Role Phone Sher Madrid MD Primary Care Provider Aundrea Brasher NP Unavailable [phone] Vinh Barnes MD Unavailable [phone] Allergies Active Allergy Reactions Criticality Noted Date Comments Sulfa (Sulfonamide Antibiotics) Other (See Comments) 10/14/2015 rash; Adhesive Tape-Silicones 09/20/2021 Topiramate Itching 05/31/2020 Vancomycin Other (See Comments) 10/14/2015 red man syndrome; Medications CYANOCOBALAMIN, VITAMIN B-12, (VITAMIN B-12 ORAL) Active zolpidem (AMBIEN) 5 MG tablet Take 5 mg by mouth nightly at bedtime as needed. 9 Active MAGNESIUM ORAL Take 400 mg by mouth daily. Active metroNIDAZOLE (METROCREAM) 0.75 % cream APPLY A THIN LAYER TO THE AFFECTED AREA 2 TIMES PER DAY IN THE MORNING AND EVENING 0 Active SUMAtriptan succinate (IMITREX) 6 mg/0.5 mL PnIj Inject 6 mg under the skin as needed. Active ubrogepant 50 mg tabletIndications:M igraine with visual aura Take 50 mg by mouth as needed. 10 tablet 11 1 Active ondansetron (ZOFRAN-ODT) 8 MG disintegrating tabletIndications:M igraine with visual aura DISSOLVE 1 TABLET (8 MG TOTAL) BY MOUTH EVERY 8 (EIGHT) HOURS NEEDED FOR NAUSEA (MIGRAINE). 90 tablet 5 2 Active cyclobenzaprine (FLEXERIL) 10 MG tabletIndications:S acroiliitis, not elsewhere classified TAKE 1 TABLET BY MOUTH 3 TIMES A DAY 84 tablet 1 2 Active diazePAM (VALIUM) 10 MG tabletIndications:B ursitis of other bursa of right hip Take 1 tablet (10 mg total) by mouth once for 1 dose. 1 hour preop 1 tablet 2 Active gabapentin (NEURONTIN) 300 MG capsuleIndications: Sacroiliitis, not elsewhere classified Take 5 capsules (1,500 mg total) by mouth nightly at bedtime. 5 caps po HS 150 capsule 2 2 Active traMADoL (ULTRAM) 50 mg tabletIndications:C hronic right shoulder pain TAKE 2 TABLETS BY MOUTH EVERY 6 HOURS NEEDED FOR PAIN 224 tablet 2 2 Active rizatriptan (MAXALT-[employer]) 10 MG disintegrating tabletIndications:M igraine with visual aura TAKE 1 TABLET BY MOUTH NEEDED FOR MIGRAINE. MAY REPEAT IN 2 HOURS IF NEEDED 9 tablet 1 3 Active Active Problems Problem Noted Date Diagnosed Date Degeneration of intervertebral disc of lumbar re gion 12/06/2021 Osteoarthritis 12/06/2021 Overview (12/06/2021): Osteoarthritis. Service date: 10/14/2015. Author: Alfred Schrader DO. Pain of lower extremity 12/06/2021 Overview (12/06/2021): Leg pain. Service date: 10/14/2015. Author: Alfred Schrader DO. 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 Service date: 10/28/2015. Author: Alfred Schrader DO. Summary: Reviewed both DUS reflux and CTA/ neiether can I see any pathology to explain her residual pain, not arterial/venous or vascular. Hypercholesterolemia 09/20/2021 Overview (12/06/2021): Hyperlipidemia. Service date: 10/14/2015. Author: Alfred Schrader DO. Lumbar radiculopathy 09/20/2021 Headache 09/20/2021 Celiac disease 09/20/2021 Lumbar spondylosis 09/20/2021 Malar rash 09/20/2021 Chronic right shoulder pain 07/17/2021 Neck pain 02/24/2021 Right arm numbness 02/24/2021 May-Thurner syndrome 09/30/2020 Overview (12/06/2021): May-Thurner syndrome. Service date: 10/28/2015. Author: Alfred Schrader DO. Summary: I reviewed all her OSH studies and discussed the natural history of DVT and how if relates to May-Thurner and answered all the patient's questions to her satisfaction. I strongly recommend she resume her ASA 81mg daily and explained the rationale behind that recommended therapy. Biceps tendinitis of right upper extremity 08/31 Cervical facet joint syndrome 10/06/2018 Myalgia 10/06/2018 Hip tendonitis, left 08/12/2018 Sacroiliitis, not elsewhere classified 7 Thoracic facet joint syndrome 06/14/2017 Bursitis of hip 06/14/2017 Immunizations Immunization Administration Dates Next Due COVID-19 (Pre-05/20) Moderna Vaccine, mRNA, PF 06/14/2021 COVID-19 (Pre-05/20) Pfizer Vaccine, mRNA, PF 11/19/2020,10/29/2020 Influenza Quadrivalent Prese rvative Free IM 05/10/2021,06/04/2020,08/26/2018,2016 Family History Medical History Relation Comments Stroke Brother Skin cancer Father Cancer Maternal Aunt CV disease Maternal Grandfather Stroke Maternal Grandmother CV disease Mother at age 59 Hypertension Mother Pancreatic cancer Mother Breast cancer Paternal Grandmother Ovarian cancer Paternal Grandmother Cancer Sibling Hemochromatosis Sister Relation Status Comments Brother (Age 56) Daughter Alive oldest daughter has epilepsy Father Alive Maternal Aunt Maternal Grandfather Maternal Grandmother Mother Paternal Grandmother Sibling Sister Alive Son Alive Social History Tobacco Use Types Packs/Day Years Used Date Smoking Tobacco: Former Cigarettes Q uit: 1998 Smokeless Tobacco: Never Alcohol Use Standard Drinks/Week Comments Yes 0 (1 standard drink = 0.6 oz pur e alcohol) twice per year maybe Education Answer Date Recorded Are you interested in more education? Not on shelli e 11/23/2022 Are you concerned about learning? Not on file 11/23/2022 No 11/23/2022 No 11/23/2022 Digital Access Answer Date Recorded No 12/23/2022 No 12/23/2022 Reliable internet access at home? Not on file 12/23/2022 Device with a working camera? Not on file Comments No Sex and Gender Information Value Date Recorded Sex Assigned at Female 09/30/2020 9:37 PM EST Legal Sex Female 3:12 PM EST Gender Identity Female 11/17/2020 1:16 PM EDT Sexual Orientation Straight 09/30/2020 9: 37 PM EST Occupation Industry Job Start Date Job End Date Staying at home Not on file Not on file Not on file Last Filed Vital Signs Vital Sign Reading Time Taken Comments Blood Pressure 98/60 12/06/2021 1:36 PM EDT Pulse 91 08/31/2019 11:00 AM EST Temperature 36.8 C (98.3 F) 10/28/2015 12:00 AM EDT Respiratory Rate 16 10/28/2015 12:00 AM EDT Oxygen Saturation 100% 08/31/2019 11:00 AM EST Inhaled Oxygen Concentration - - Weight 82.6 kg (182 lb) 12/06/2021 1:36 PM EDT Height 157.5 cm (5' 2 ) 12/06/2021 1:36 PM EDT Body Mass Index 33.29 12/06/2021 1:36 PM EDT Plan of Treatment Health Maintenance Due Date Last Done Comments MAMMOGRAM 1970 DEPRESSION SCREENING 1982 SMOKING Hx and SMOKELESS TOBACCO SCREENING 1983 HEPATITIS C SCREENING 1988 HIV ONE-TIME SCREENING (18-65 YEARS) 1988 COLOGUARD 2015 COLONOSCOPY 2015 COLORECTAL CANCER SCREENING 2015 FIT TEST 2015 FOBT 2015 SIGMOIDOSCOPY 2015 VIRTUAL COLONOSCOPY 2015 PNEUMOCOCCAL VACCINES (50+ years) (1 of 1 - PCV) 2020 ZOSTER VACCINES (1 of 2) 2020 PAP SMEAR 09/30/2021 09/30/2018, 0311/2018, 01/10/2015, Additional history exists COVID-19 VACCINE ( season) 2024 08/17/2022, 06/14/2021, 06/14/2021, Additional history exists Adult Td,Tdap Booster 09/22/2024 09/22/2014 INFLUENZA VACCINE (#1) 2025 , 08/17/2022, 05/10/2021, Additional history exists LIPID PANEL 03/30/2025 03/30/2020 HEPATITIS A VACCINES Aged Out No long er eligible based on patient's age to complete this topic HIB VACCINES Aged Out No longer eligi ble based on patient's age to complete this topic MENINGOCOCCAL VACCINES (ACWY) Aged Out No longer eligible based on patient's age to complete this topic MENINGOCOCCAL VACCINES (B) Aged Out N o longer eligible based on patient's age to complete this topic Medical Devices Not on file Procedures Procedure Name Priority Date/Time Associated Diagnosis Comments PAP TEST Routine 09/30/2018 12:00 AM EST from Last 3 Months or Most Recently Relevant to Health Maintenance Results * Pap Smear (09/30/2018 12:00 AM EST) 09/30/2018 10/01/2018 11: 24 AM EST Narrative SEE NARRATIVE - 10/07/2018 4:08 PM EDT [address] [address] Director Of Rooms: Adrienne Farley MD [employer] Cytology Report FINAL DIAGNOSIS A. PAP SMEAR (SUREPATH) CE: SPECIMEN ADEQUACY: Satisfactory for evaluation; transformation zone present. INTERPRETATION: NEGATIVE FOR INTRAEPITHELIAL LESION OR MALIGNANCY. Endometrial cells are present in a woman 45 years of age or older. Endometrial cells after age 45, particularly out of phase or after menopause, may be associated with benign endometrium, hormonal alterations, and, less commonly, endometrial/uterine abnormalities. Clinical correlation is recommended. The concurrent endometrial biopsy was benign. Electronically Signed Out By: MARISELA Price MD([facility]) By his/her signature above, the pathologist listed as making the Final Diagnosis certifies that he/she has personally reviewed this case and confirmed or corrected the diagnosis. The Pap test is a screening test primarily for squamous cancers and precursors and has associated false-negative and false-positive results. New technologies such as liquid-based preparations may decrease but will not eliminate all false-negative results. Regular sampling and follow-up of unexplained clinical signs and symptoms are recommended to minimize false negative results. PROCEDURES/ADDENDA HPV Testing (Requested) Ordered Date: 10/01/2018 HPV Test Negative for high-risk human papillomavirus types 16, 18, 45 and the Other high risk probe set (Includes 31, 33, 35, 39, 51, 52, 56, 58, 59, 66, 68) by [employer] On[employer]arity HR-HPV analysis. Clinical correlation is advised. This HPV test was performed at [facility], [address] [place] [address]. This test has been FDA approved for SurePath cervical cytology specimens. The accuracy and precision of this test for all other specimen sources has been verified in the Cytopathology Laboratory of the [facility] and has not been cleared or approved by the U.S. Food and Drug Administration. Clinical correlation is advised. CLINICAL HISTORY Date of Last Menstrual Period: 09/30/2018 Menstrual History: Mary-Menopausal Other Clinical Conditions: Screening Pap History of LEEP and HPV (16+) 2014. SPECIMEN SOURCE A: PAP SMEAR (SUREPATH) CE Patient Name: TRANG OSORIO : 1970 (Age: 48) Sex: F Institution: [facility] Location: [id number] Date of Collection: 09/30/2018 Date of Reported: 10/07/2018 16:08 Results to: Brandy Corona MSN Brandy Corona CN CYTOLOGY ORDERABLES Final Result SEE NARRATIVE from Last 3 Months or Most Recently Relevant to Health Maintenance Insurance ACO ACO ACO ACO ACO ACO Care Teams Mine Car Dispatcher Relationship Specialty Start Date End Date Sher Madrid MD [email or web address] PCP - General Family Medicine 09/13/15 Aundrea Brasher NP Historical LMR Provider 05/18/17 Vinh Barnes MD [address] [place] [address], [address] [place] [id number] [email or web address] Historical LMR Provider 05/18/17 Additional Source Comments The information contained in this document represents components of the legal health record. It is not the complete legal health record.[facility]
--- OUTSIDE RECORDS SUMMARY | 2025-04-14 18:35 | XMS_ITS | Encounter Summary ---
Author Organization [facility] Address [address] [place] [address] Phone Care Team Providers Care Business Integration Manager Name Role Phone Sher Madrid MD Primary Care Provider Aundrea Brasher NP Unavailable [phone] Vinh Barnes MD Unavailable [phone] Encounter Details Date Type Department Care Team (Late st Contact Info) Description 05/14/2023 Procedure Pass [facility] Endoscopy Admitting Dept Virtual Department [address] [place] [address] [id number] Social History Tobacco Use Types Packs/Day Years [...] file Not on file Not on file documented as of this encounter Plan of Treatment Not on file documented as of this encounter Visit Diagnoses Not on filedocumented in this encounter Care Teams Business Integration Manager Relationship Specialty Start Date End Date Sher Madrid MD PCP - General Family Medicine 09/13/15 Aundrea Brasher NP Historical LMR Provider 05/18/17 Vinh Barnes MD [address] [place] [address], [address] [place] [id number] Historical LMR Provider 05/18/17 documented as of this encounter Additional Source Comments The information contained in this document represents components of the legal health record. It is not the complete legal health record.[facility]
--- OUTSIDE RECORDS SUMMARY | 2025-04-14 18:35 | XMS_ITS | Encounter Summary ---
Author Organization [facility] Address [address] [place] [address] Phone Care Team Providers Care Motorcycle Builder Name Role Phone Sher Madrid MD Primary Care Provider Aundrea Brasher NP Unavailable [phone] Vinh Barnes MD Unavailable [phone] Sher Madrid MD Unavailable [phone] Encounter Details Date Type Department Care Team (Late st Contact Info) Description 11/17/2021 Procedure Pass [facility], Ct Scan - [address] [address] Social History Tobacco Use Types Packs/Day Years Used Date Smoking Tobacco: Former Cigarettes Q uit: 1998 Smokeless Tobacco: Never Alcohol Use Standard Drinks/Week Comments Yes 0 (1 standard drink = 0.6 oz pur e alcohol) twice per year maybe Comments No Sex and Gender Information Value [...] on filedocumented in this encounter Care Teams Motorcycle Builder Relationship Specialty Start Date End Date Sher Madrid MD [email or web address] PCP - General Family Medicine 09/13/15 Aundrea Brasher NP Historical LMR Provider 05/18/17 Vinh Barnes MD [address] [place] [phone] [email or web address] Historical LMR Provider 05/18/17 Sher Madrid MD [address] [place] [phone] [email or web address] Insurance Assigned Provider 07/04/19 05/04/23 documented as of this encounter Additional Source Comments The information contained in this document represents components of the legal health record. It is not the complete legal health record.[facility]
== END 2025-04-14 15:31 | disposition home or self-care (01) ==
LOC: HO.HSMS 15:02
PROVIDERS: PCP Family Medicine; Visit Provider Psychiatry & Neurology Neurology
DX: G43.719 Chronic migraine without aura, intractable, without status migrainosus (principal); G43.709 Chronic migraine without aura, not intractable, without status migrainosus
CPT/HCPCS: 64615

== ENCOUNTER → 2025-04-14 15:02 | Outpatient (BNVA) | payer OTHER, SELFPAY | PROVIDERS: PCP Family Medicine; Visit Provider Psychiatry & Neurology Neurology | DX: G43.119 Migraine with aura, intractable, without status migrainosus (principal); G43.709 Chronic migraine without aura, not intractable, without status migrainosus; G43.719 Chronic migraine without aura, intractable, without status migrainosus | CPT/HCPCS: 64615; 99211; J0585 ==